=== PATIENT | male | born 1985 | race Caucasian/White ===

== ENCOUNTER 2020-12-26 14:10 | Emergency (ER) | payer OTHER, SELFPAY ==
--- NOTE | ~2020-12-26 | XR_ITS ---
EXAMINATION: XR FINGER, LEFT CLINICAL INFORMATION: Middle finger injury. COMPARISON: None TECHNIQUE: 3 views of the left middle finger. FINDINGS: The bones and soft tissues are normal. No fracture. Alignment is anatomic. Joint spaces are maintained. XR/XR finger LT min 2V IMPRESSION: Unremarkable left middle finger exam.
[2020-12-26 14:18] VITALS: BP 135/77; PULSE 99; RESP 19; TEMP 36.7; O2SAT 96; BMI 24.4
--- NOTE | 2020-12-26 17:13 | ED.EXTPRO ---
HPI - Extremity Problem General Chief complaint: Extremity Injury, Upper Stated complaint: broke finger at work Time Seen by Provider: 12/26/20 17:13 Source: patient Mode of arrival: ambulatory History of Present Illness HPI Narrative: 35-year-old male with no significant past medical history presenting to the ED complaining of left middle finger hematoma/pain/ injury s/p hitting with hammer this morning around 11:00 a.m. reports associated numbness. Denies injury to other area, fever MD Complaint: extremity pain, extremity swelling and joint swelling Related Data Allergies Allergy/AdvReac Type Severity Reaction Status Date / Time No Known Allergies Allergy Verified 12/26/20 14:17 Review of Systems Review of Systems: Constitutional: No Fever, No Chills Musculoskeletal: + joint pain, No Myalgias, + Joint Swelling Skin: No Skin Lesions, No rash Neuro: No Weakness, No Numbness, + Paresthesias Yes all other systems are reviewed and are negative PMFSH Past Medical History Attestation statement: The following information was validated with the patient. Surgical History (Updated 12/26/20 @ 14:20 by Dominga Jay RN) H/O knee surgery Social History Social History Advance Directives: No Advance Directives Information Provided: No Physical Exam Vital Signs: Vital Signs: Last Vital Signs Temp 98.1 F 12/26/20 14:18 Pulse 99 12/26/20 14:18 Resp 19 12/26/20 14:18 BP 135/77 12/26/20 14:18 Pulse Ox 96 12/26/20 14:18 Body Mass Index 24.4 Const: General: cooperative and healthy appearing Orientation/consciousness: patient oriented x3 Limitations: no limitations HENMT: Head: Yes normal to inspection Ears: hearing grossly normal bilaterally General nose exam: Normal external nose present Face and sinus: Yes normal facial exam Eyes: General: appearance normal, both eyes and all related structures EOM: EOMs intact bilaterally Neck: Neck: Yes normal visual inspection and Yes no meningeal signs Resp: Effort & Inspection: normal respiratory effort Cardio: Rate: regular rate Peripheral pulses: radial pulses present Skin: Other: + subungual hematoma noted to left middle finger + left middle finger with distal tenderness to palpation and ecchymosis. FROM intact. sensation intact to light touch Rashes: no rashes Neuro: General: patient oriented x3 and no meningeal signs Gait exam (Neuro): Normal gait present Extrem: General: Yes normal to inspection Course Course Course Narrative: XR finger LT min 2V IMPRESSION: Unremarkable left middle finger exam. Procedures Procedure Narrative Procedure Narrative: trephination performed to left middle finger MDM - Extremity (Nontraumatic) MDM Narrative Medical decision making narrative: 35-year-old male with no significant past medical history presenting to the ED complaining of left middle finger hematoma/pain/ injury s/p hitting with hammer this morning around 11:00 a.m. on exam vital signs stable, NAD, physical exam as above. Will perform trephination to subungual hematoma and x-rays to rule out fracture /crush injury Discharge Plan Discharge Clinical Impression: Subungual hematoma Patient Disposition: Home, Self-Care Instructions: Subungual Hematoma (ED) Additional Instructions: your x-rays were unremarkable. Your blood blister was opened / drain today in the ED, it is normal for taking draining for the next 24-48 hours Keep a close eye on her finger, if it begins to look infected, more swollen, increasingly or undergoing we painful please return to the ED Follow-up with her primary care doctor Ice and elevate your hand Take Tylenol and Motrin for pain and swelling Referrals: ED Physician,Generic [Emergency Provider] - 2 days Stand Alone Forms: Work/School Release
--- NOTE | 2020-12-26 17:24 | PC.NURSE ---
PT LEFT MIDDLE FINGER CLEANED AND DRIED AND DSD APPLIED BY PCT W[facility]ON.
== END 2020-12-26 17:30 | disposition home or self-care (01) ==
PROVIDERS: Emergency Provider Emergency Medicine
DX: S60.132A Contusion of left middle finger with damage to nail, initial encounter (principal); W18.09XA Striking against other object with subsequent fall, initial encounter; Y93.9 Activity, unspecified; Y92.89 Other specified places as the place of occurrence of the external cause; Y99.0 Civilian activity done for income or pay
CPT/HCPCS: 11740; 73140; 99283

== ENCOUNTER 2021-08-21 10:39 | Outpatient (REF) | payer OTHER, SELFPAY ==
[2021-08-21 11:06] LABS: COVID-19 Test Negative (Negative)
== END 2021-08-21 10:40 | disposition home or self-care (01) ==
LOC: HO.LAB 10:39
PROVIDERS: Visit Provider Internal Medicine
DX: Z20.822 Contact with and (suspected) exposure to COVID-19 (principal)
CPT/HCPCS: 87635; C9803

== ENCOUNTER 2022-02-15 09:45 | Outpatient (REF) | payer SELFPAY ==
[2022-02-15 10:18] LABS: COVID-19 Test Positive (Negative)
== END 2022-02-15 09:46 | disposition home or self-care (01) ==
LOC: HO.LAB 09:45
PROVIDERS: Visit Provider Internal Medicine
DX: Z20.822 Contact with and (suspected) exposure to COVID-19 (principal)
CPT/HCPCS: 87635; C9803